=== PATIENT | male | born 1945 | race Caucasian/White ===

== ENCOUNTER 2016-08-05 02:45 | Inpatient (IN) | payer MEDICARE ==
[~2016-08-05] VITALS: Ht 185.4 cm; Wt 86.2 kg
[~2016-08-05 02:45] MED LIST: ASPIRIN EC81 M1 PO; LISINOPRIL-HCTZ1 T11 PO; LISINOPRIL10 MG PO; PRINIVIL20 MG PO
[2016-08-05 03:36] LABS: BASOPHILS 0.3 % (0-2); EOSINOPHILS 1.1 % (0-7); HEMATOCRIT 35.6 % (42.0-54.0); HEMOGLOBIN 11.9 g/dL (13.5-17.5); IMMATURE GRANULOCYTES 0.9 % (0-5); LYMPHOCYTES 13.9 % (15-50); MCH 29.1 pg (26.0-34.0); MCHC 33.4 g/dL (31.0-37.0); MEAN PLATELET VOLUME 8.9 fL (7.4-10.4); MONOCYTES 9.3 % (2-11); NEUTROPHILS 74.5 % (40-80); PLATELET COUNT 250 10x3/uL (130-400); RBC 4.09 10x6/uL (4.20-6.10); RDW 13.3 % (11.5-14.5); WBC 9.3 10x3/uL (4.8-10.8)
[2016-08-05 03:48] LABS: ALBUMIN 3.5 g/dL (3.4-5.0); ANION GAP 11.3 mmol/L (8-16); BILIRUBIN - TOTAL 0.37 mg/dL (0.2-1.3); CREATININE - SERUM 2.3 mg/dL (0.6-1.3); POTASSIUM - SERUM 4.3 mmol/L (3.5-5.1); PROTEIN - SERUM 7.7 g/dL (6.4-8.2)
[2016-08-05 04:07] LABS: APPEARANCE CLEAR (CLEAR); BILIRUBIN NEGATIVE (NEGATIVE); COLOR YELLOW (YELLOW); GLUCOSE NEGATIVE (NEGATIVE); KETONE NEGATIVE (NEGATIVE); LEUKOCYTE ESTERASE TRACE (NEGATIVE); NITRITE NEGATIVE (NEGATIVE); PROTEIN 2+ mg/dL (NEGATIVE); UROBILINOGEN NORMAL (NORMAL)
[2016-08-05 04:19] LABS: BACTERIA FEW /hpf (NONE SEEN); EPITHELIAL CELLS OCC /hpf (0-5); HYALINE CAST OCC /lpf (NONE SEEN); RED CELLS - URINE 0-5 /hpf (0-5); WHITE CELLS - URINE OCC /hpf (0-5)
[2016-08-05 09:45] VITALS: BP 126/80
[2016-08-05 10:16] LABS: INR 1.01 (0.85-1.17); PROTIME 13.2 SECONDS (11.6-15.0)
[2016-08-05 12:59] VITALS: BP 123/82
[2016-08-05 14:29] VITALS: BP 126/80; BMI 25.1
[2016-08-05 17:02] VITALS: BP 134/58
[2016-08-05 19:00] VITALS: BP 117/76
--- NOTE | 2016-08-06 01:42 | NUR ---
REC'D PATIENT ASLEEP IN BED. ALERT AND ORIENTED X4. NO DISTRESS NOTED. DENIED FURTHER NEEDS AT THIS TIME. WAS ABLE TO WAKE HIM UP ENOUGH TO SIGN HIS CONSENT FOR HIS BIOSPY. DENIED PAIN AT THIS TIME. INSTRUCTED TO CALL IF NEEDED ANYTHING. BED LOW, LOCKED, CALL LIGHT IN REACH.
--- NOTE | 2016-08-06 03:05 | NUR ---
PATIENT RESTING WITH EYES CLOSED AND NO VISIBLE SIGNS OF DISTRESS. BED IN LOWEST POSITION AND CALL LIGHT WITHIN REACH.
[2016-08-06 04:00] VITALS: BP 140/89
--- NOTE | 2016-08-06 04:35 | NUR ---
PATIENT IS RESTING IN BED. NO DISTRESS NOTED. DENIES PAIN AT THIS TIME. DENIES FURTHER NEEDS AT THIS TIME. INSTRUCTED TO CALL IF NEEDED ANYTHING. BED LOW, LOCKED, CALL LIGHT IN REACH.
[2016-08-06 07:26] LABS: BASOPHILS 0.5 % (0-2); EOSINOPHILS 2.9 % (0-7); HEMATOCRIT 32.1 % (42.0-54.0); HEMOGLOBIN 10.5 g/dL (13.5-17.5); IMMATURE GRANULOCYTES 0.5 % (0-5); LYMPHOCYTES 16.5 % (15-50); MCHC 32.7 g/dL (31.0-37.0); MCV 88.7 fL (80.0-100.0); MEAN PLATELET VOLUME 8.5 fL (7.4-10.4); MONOCYTES 12.5 % (2-11); NEUTROPHILS 67.1 % (40-80); PLATELET COUNT 212 10x3/uL (130-400); RBC 3.62 10x6/uL (4.20-6.10); RDW 13.5 % (11.5-14.5)
[2016-08-06 07:32] LABS: WBC 6.5 10x3/uL (4.8-10.8)
[2016-08-06 07:52] LABS: APTT 27.8 SECONDS (22.8-39.4); INR 1.03 (0.85-1.17); PROTIME 13.3 SECONDS (11.6-15.0)
[2016-08-06 08:02] LABS: ALBUMIN 2.9 g/dL (3.4-5.0); ANION GAP 8.5 mmol/L (8-16); BILIRUBIN - TOTAL 0.6 mg/dL (0.2-1.3); CALCIUM 8.5 mg/dL (8.5-10.1); CREATININE - SERUM 2.6 mg/dL (0.6-1.3); PROTEIN - SERUM 6.7 g/dL (6.4-8.2)
[2016-08-06 08:04] LABS: POTASSIUM - SERUM 3.5 mmol/L (3.5-5.1)
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
[2016-08-06 08:28] VITALS: BP 149/96
--- NOTE | 2016-08-06 09:58 | NUR ---
RETURNED FROM XRAY. VS R 18 BP 156/103 P 66 OXYGEN SAT 99% ON NON REBREATHER. DRESSING CLEAN DRY AND INTACT. STATES NO COMPLAINTS OF SOB. ASKING FOR COFFEE. CALL LIGHT IN REACH
[2016-08-06 12:42] VITALS: BP 157/98
[2016-08-06 14:42] VITALS: Ht 185.4 cm; Wt 86.2 kg
[2016-08-06 16:38] VITALS: BP 142/87
--- NOTE | 2016-08-06 17:57 | NUR ---
Patient Name: DALE ALLEN Admission Status: ER Accout number: [id number] Admission Date: 08-05-2016 : 1945 Admission Diagnosis: Attending: BECKY Current LOS: 1 Anticipated DC Date: 08-09-2016 Planned Disposition: Home Primary Insurance: MEDICARE A & B Discharge Planning Comments: CM MET WITH PATIENT REGARDING D/C NEEDS AND PLANS. PATIENT STATED HE LIVES WITH HIS SON (MERLENE) AND HE WILL DRIVE HIM HOME AT DISCHARGE. PATIENT STATED HIS HOME IS SAFE AND THERE ARE 3 STEPS W/RAILS TO ENTER HOME AND NO STAIRS INSIDE. PATIENT IS INDEPENDENT WITH HIS CARE AND HAS NO DME AT HOME. PATIENTS PCP IS DR. WARREN IN [place] AND USES [facility] [address] FOR HIS PHARMACY. CM WILL CONTINUE TO FOLLOW PATIENT WITH D/C NEEDS AND PLANS. [facility] [address] [phone] MERLENE (SON) [phone] Polystyrene Bead Molder: Jaylene Murdock Is the patient Alert and Oriented? Yes 0 * How many steps to enter\exit or inside your home? 3 W/RAILS 0 * PCP DR. WARREN IN [place] 0 * [facility] [address] 0 * Preadmission Environment Home with Family 0 * ADLs Independent 0 * Equipment None 0 * List name and contact numbers for known caregivers / representatives who currently or will assist patient after discharge: MERLENE (SON) [phone] 0 * Community resources currently utilized None 0 * Additional services required to return to the preadmission environment? Yes 0 * Can the patient safely return to the preadmission environment? Yes 0 * Has this patient been hospitalized within the prior 30 days at any hospital? No 0 Grand Total: 0
[2016-08-07] VITALS: BP 160/103
--- NOTE | 2016-08-07 01:10 | NUR ---
REC'D PATIENT SITTING UP IN BED WATCHING TV. ALERT AND ORIENTED X4. DENIED PAIN AT THIS TIME. STATED HIS PAIN MEDS WERE MAKING HIM SICK. AND HIS BP WAS 160/103. HE STATED THAT "I TAKE 2 BP MEDS AT HOME". I CALLED THE DISPUTE RESOLUTION SPECIALIST DOC FOR DR. TAI. DR. FREEMAN AND HE TOLD ME TO CHANGED HIS BP MEDS TO BID, AND HIS PAIN MEDS TO OXYCOTIN 5MG Q6. ADMINISTERED ORDERED. BP WAS RECHECKED AND WAS 150/87. DENIED FURTHER NEEDS AT THIS TIME. INSTRUCTED TO CALL IF NEEDED ANYTHING. VERBALIZED UNDERSTANDING. BED LOW, LOCKED CALL LIGHT IN REACH, ALARM ON.
[2016-08-07 04:00] VITALS: BP 143/76
[2016-08-07 06:15] LABS: BASOPHILS 0.3 % (0-2); EOSINOPHILS 3.1 % (0-7); HEMATOCRIT 32.2 % (42.0-54.0); HEMOGLOBIN 10.7 g/dL (13.5-17.5); IMMATURE GRANULOCYTES 0.5 % (0-5); LYMPHOCYTES 18.6 % (15-50); MCH 29.2 pg (26.0-34.0); MCHC 33.2 g/dL (31.0-37.0); MCV 87.7 fL (80.0-100.0); MEAN PLATELET VOLUME 8.7 fL (7.4-10.4); MONOCYTES 11.5 % (2-11); PLATELET COUNT 238 10x3/uL (130-400); RBC 3.67 10x6/uL (4.20-6.10); RDW 13.4 % (11.5-14.5); WBC 6.2 10x3/uL (4.8-10.8)
[2016-08-07 06:33] LABS: ALBUMIN 2.8 g/dL (3.4-5.0); ANION GAP 12.6 mmol/L (8-16); BILIRUBIN - TOTAL 0.45 mg/dL (0.2-1.3); CALCIUM 8.5 mg/dL (8.5-10.1); CARBON DIOXIDE 27.4 mmol/L (21.0-32.0); CREATININE - SERUM 2.1 mg/dL (0.6-1.3); PROTEIN - SERUM 6.7 g/dL (6.4-8.2)
--- NOTE | 2016-08-07 07:45 | NUR ---
ASSESSMENT PER FLOW SHEET.PT WITHOUT DISTRESS.DRESSING RIGHT UPPER BACK CDI.C/O PAIN TO LEFT HIP,BRUISING NOTED.MONITOR FOR NEEDS.FALL PREVENTION IN PLACE.
[2016-08-07 08:26] VITALS: BP 160/94
--- NOTE | 2016-08-07 10:00 | NUR ---
PAIN MEDS ORDERED PER MAR FOR PAIN IN LEFT HIP
[2016-08-07] MEDS ORDERED: PERCOCET 5-3251 TAB PO (11:24)
[2016-08-07 12:15] VITALS: BP 172/107
--- NOTE | 2016-08-07 12:31 | NUR ---
CM REASSESSMENT NOTE: PATIENT IS DISCHARGING HOME TODAY. PATIENTS SON OR FRIEND (JUAN PABLO) WILL DRIVE HIM HOME. PATIENT DENIES NEEDS FOR HOME HEALTH AND HAD NO OTHER NEEDS FOR DISCHARGE.
--- NOTE | 2016-08-07 12:57 | NUR ---
REMAINS WITHOUT NEEDS,WITHOUT DISTRESS.
--- NOTE | 2016-08-07 14:07 | NUR ---
IV DCD WITH CATH INTACT.PT WISHAES TO SHOWER BEFORE DC HOME.PT UP TO SHOWER
--- NOTE | 2016-08-07 15:38 | NUR ---
LEFT UNIT VIA WHEELCHAIR
== END 2016-08-07 15:39 | disposition home or self-care (01) | DRG 552 ==
LOC: D.ER 02:45 → D.MS 06:35
PROVIDERS: Emergency Medicine; General Practice; Internal Medicine Hematology & Oncology; Radiology Diagnostic Radiology; ADMIT Family Medicine
PROC: 0BBC3ZX Excision of Right Upper Lung Lobe, Percutaneous Approach, Diagnostic (ICD-10-PCS; principal; 2016-08-06 08:25)
DX: S32.039A Unspecified fracture of third lumbar vertebra, initial encounter for closed fracture (principal); J95.811 Postprocedural pneumothorax; S32.049A Unspecified fracture of fourth lumbar vertebra, initial encounter for closed fracture; V47.0XXA Car driver injured in collision with fixed or stationary object in nontraffic accident, initial encounter; I10 Essential (primary) hypertension; R91.8 Other nonspecific abnormal finding of lung field; M62.830 Muscle spasm of back; Y83.9 Surgical procedure, unspecified as the cause of abnormal reaction of the patient, or of later complication, without mention of misadventure at the time of the procedure

== ENCOUNTER 2016-08-17 22:44 | Inpatient (IN) | payer MEDICARE ==
[~2016-08-17] VITALS: Ht 185.4 cm; Wt 76.2 kg
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
[~2016-08-17 22:44] MED LIST changes: +PERCOCET 5-3251 TAB PO
[2016-08-17 23:57] LABS: HEMOGLOBIN 10.2 g/dL (13.5-17.5); MCH 29.1 pg (26.0-34.0); MCV 85.5 fL (80.0-100.0); MEAN PLATELET VOLUME 7.9 fL (7.4-10.4); NEUTROPHILS 72.4 % (40-80); RBC 3.51 10x6/uL (4.20-6.10); RDW 13.6 % (11.5-14.5); WBC 7.7 10x3/uL (4.8-10.8)
[2016-08-18] VITALS (17 sets, daily range): BP systolic 126–185; BP diastolic 66–107; BMI 22.2
[2016-08-18 00:04] LABS: PLATELET COUNT 333 10x3/uL (130-400)
[2016-08-18 00:07] LABS: ANION GAP 15.4 mmol/L (8-16); CALCIUM 8.7 mg/dL (8.5-10.1); CARBON DIOXIDE 21.1 mmol/L (21.0-32.0); CREATININE - SERUM 2.4 mg/dL (0.6-1.3); POTASSIUM - SERUM 3.5 mmol/L (3.5-5.1)
--- NOTE | 2016-08-18 07:00 | NUR ---
PT REC'D FROM [facility]. RESTING IN BED WITH EYES CLOSED. EASILY AROUSED. AAOX4. ABRASIONS AND DRIED BLOOD TO FOREHEAD. ASPEN COLLAR ON. LUNG SOUNDS CLEAR AND EQUAL BILAT. BOWEL SOUNDS ACTIVE X4 QUADRANTS. PT HAS SMALL BLACK BAG AROUND HIS NECK THAT HE STATES HE DOES NOT WANT TO SEND TO THE SAFE. RATING CURRENT PAIN IN NECK 09/23. BP ELEVATED AT 168/99. WILL REASSESS. BED LOW, CALL LIGHT IN REACH, DENIES NEEDS. CPOC.
[2016-08-18 09:47] LABS: APTT 26.6 SECONDS (22.8-39.4); INR 1.08 (0.85-1.17); PROTIME 13.9 SECONDS (11.6-15.0)
--- NOTE | 2016-08-18 11:00 | NUR ---
OFF FLOOR IN MRI VIA STRETCHER.
--- NOTE | 2016-08-18 11:28 | NUR ---
PT SIGNED CONSENTS, PRE-OP'D, AND TAKEN TO SURGERY AT THIS TIME. SMALL BLACK BAG AROUND NECK AND REMOVED. WILL CALL SECURITY LOCK UP IN SAFE.
--- NOTE | 2016-08-18 13:12 | NUR ---
PATIENT POSITIONED PRONE ON GEL ROLLS, SKULL PINS PLACED BY DR. INGRAM, RIB LAKE HEAD POSITIONER, PILLOWS UNDER KNEES AND FEET, ARMS TUCKED AT SIDE AND PADDED
--- NOTE | 2016-08-18 14:46 | NUR ---
PT ARRIVED TO UNIT AT THIS TIME FROM OR, RECIEVED REPORT FROM TOD. NO DISTRESS NOTED. AXILLARY TEMP OF 92.7 NOTED ,KEITH SORENSEN PPLACED AT THIS TIME. PT ARRIVED VIA BED ACCOMPANIED BY HOSPITAL STAFF. WILL CONTINUE PLAN OF CARE.
--- NOTE | 2016-08-18 15:23 | NUR ---
NOTED PT BP IS 187/98, CALLED DR HUTSON OFFICE TO SEE IF CAN GET FURTHER ORDERS IN RELATION TO THIS HTN. WILL CONTINUE PLAN OF CARE.
--- NOTE | 2016-08-18 15:31 | NUR ---
SPOKE WITH DR INGRAM AT THIS TIME ORDERS RECIEVED.
--- NOTE | 2016-08-18 15:54 | NUR ---
DR WRIGHT PAGED AT THIS TIME FOR CONSULT. WAITING FOR CALLBACK.
--- NOTE | 2016-08-18 17:37 | NUR ---
ABLE TO SWALLOW ICE CHIPS AND WATER WELL WITHOUT S/S OF ASPIRATION. NO ACUTE DISTRESS NOTED. WILL CONTINUE PLAN OF CARE.
--- NOTE | 2016-08-18 18:49 | NUR ---
RESTING QUIETLY IN BED AT THIS TIME. NO ACUTE DISTRESS NOTED. RESPIRATIONS AT STEADY AND UNLABORED RATE. AWAKENS EASILY WHEN STAFF STATES PT NAME. WILL CONTINUE PLAN OF CARE.
--- NOTE | 2016-08-18 19:00 | NUR ---
Received patient resting in bed with eyes closed, Assessment completed per flowsheet. Patient AO x4, calm and cooperative. Eyes PERRLA @ 4mm with brisk response, sclera is white. Oral mucosa is dry with tongue midline. S1/S2 noted NSR on telemetry with HR 74, rythmic and regular. Breathing is even and unlabored on room air, Lung sounds clear throughout. Abdomen is soft and non-tender to palpation, bowel sounds active x4. Thornton secured in place with statlock, clear yellow urine noted. Full ROM all extremities with all pulses palpable and Cap refill <3 sec. Multiple abrasions noted facial area and forehead, surgical stabilzation wounds noted above ears bilateral with no drainage. 20g PIV noted R forearm patent with fluids infusing, 20g PIV noted R lower leg saline locked. Patient c/o pain head and neck, PRN medication given and will reassess. Patient denies other needs at this time, all VSS and will continue to monitor.
--- NOTE | 2016-08-18 23:00 | NUR ---
Reassessment completed per flowsheet, patient in bed with eyes open groaning. Patient c/o intermittent neck pain 09/23, repositioned and will provide PRN medication when available. S1/S2 noted NSR on telemetry with HR 90, rhythmic and regular. Breathing is even and unlabored on room air, O2 sat 94%. Posterior neck dressing CDI, no swelling or drainage noted. No further needs at this time, all VSS and will continue to monitor.
[2016-08-19] VITALS (16 sets, daily range): BP systolic 127–171; BP diastolic 71–102; Ht 185.4 cm; Wt 76.2 kg
--- NOTE | 2016-08-19 03:00 | NUR ---
Reassessment completed per flowsheet, patient resting in bed with eyes closed. Patient c/o constant pain in Neck 09/23, repositioned and will provided PRN medication when available. S1/S2 noted NSR on telemetry with HR 87, rhythmic and regular. Breathing is even and unlabored on room air, O2 sat 95%. Posterior neck dressing CDI, no bleeding or drainage noted. No further needs at this time, all VSS and will continue to monitor.
--- NOTE | 2016-08-19 07:15 | NUR ---
ASSESSMENT COMPLETE. AAO X4. GARBLED SPEECH, MISSING TEETH. CLEAR LUNGS. ROOM AIR. S1S2 NOTED, RADIAL AND PEDAL PULSES PALP. GENERALIZED WEAKNESS. REPORTS TROUBLE SWALLOWING. PAIN IN NECK. ACTIVE BOWEL SOUNDS X4. SEE FLOWSHEET FOR OTHER FINDINGS.
--- NOTE | 2016-08-19 09:30 | NUR ---
PT REPORTS TROUBLE SWALLOWING PILLS. WILL NOTIFY PHYSICIAN FOR SPEECH THERAPY CONSULT.
--- NOTE | 2016-08-19 11:15 | NUR ---
REASSESSMEMT COMPLETE, SEE FLOWSHEET FOR DETAILS.
[2016-08-19 11:48] LABS: MAGNESIUM - SERUM 1.9 mg/dL (1.8-2.4); PHOSPHOROUS 3.4 mg/dL (2.5-4.9)
[2016-08-19 11:50] LABS: COMPLEMENT C4 13.1 mg/dL (17.4-52.2)
--- NOTE | 2016-08-19 11:53 | NUR ---
SPOKE WITH DR. AHUJA ABOUT CONSULT
[2016-08-19 12:54] LABS: APPEARANCE CLEAR (CLEAR); BACTERIA MODERATE /hpf (NONE SEEN); BILIRUBIN NEGATIVE (NEGATIVE); COLOR YELLOW (YELLOW); EPITHELIAL CELLS 0-5 /hpf (0-5); GLUCOSE 50 mg/dL (NEGATIVE); KETONE NEGATIVE (NEGATIVE); LEUKOCYTE ESTERASE 1+ (NEGATIVE); MUCUS <1+ /lpf (NONE SEEN); NITRITE NEGATIVE (NEGATIVE); PROTEIN 1+ mg/dL (NEGATIVE); SPECIFIC GRAVITY 1.015 (1.005-1.020); UROBILINOGEN NORMAL (NORMAL)
--- NOTE | 2016-08-19 12:59 | NUR ---
NOTIFIED JUDI THAT THE FAMILY FRIEND PRESENT WANTS TO SPEAK WITH HER
--- NOTE | 2016-08-19 13:35 | NUR ---
JUDI AT BEDSIDE SPEAKING WITH PATIENT'S FRIEND/NURSE ROOFING SUPERVISOR ABOUT REHAB
--- NOTE | 2016-08-19 15:31 | NUR ---
DR. AHUJA AT BEDSIDE.
--- NOTE | 2016-08-19 17:00 | NUR ---
PT DENIES NEEDS AT THIS TIME.
--- NOTE | 2016-08-19 17:35 | NUR ---
[id number] had a telephone message from Akilah Sánchze, friend of patient and his son. She assist the patient with some decision making, financial issues and offers health care advise. She states the patient has a home which is trailer. She states he could not return to the trailer at discharge. He has had 2 recent admits including this one. He has been utilizing a bike for transportation. He has a son, Thu Martel, at [phone]. called Thu. He is concerned about his father but states he has his own issues. He and his father do not manage well living together. The son reports his father does not want to assist w/ bills. He also seems to be independent and likes being alone. MS Sánchez visited at 1300 in the patient's room. The nurse called to to speak with her. The patient has a trailer but limited utilities if any. She feels he would do well in acute rehab. The patient was in agreement with the plan. He is willing to participate. They request acute rehab at [facility]. MS Sánchez is familiar with the unit. She is a nursing unit manager. She feels he will need assistance w/ resources for f/u, transportation etc. The patient was OOB in the chair. He was having some pain and had been medicated. Case management will follow to assist. Akilah Mckeonming- contact phone number- [phone].
--- NOTE | 2016-08-19 19:00 | NUR ---
Received patient resting in bed with eyes closed, assessment completed per flowsheet. Patient AO x4, calm and cooperative. Eyes PERRLA @ 4mm with brisk response, sclera is white. Oral mucosa moist with tongue midline, some teeth missing. S1/S2 noted NSR on telemetry with HR 79, rhythmic and regular. Breathing is even and unlabored on room air with O2 sat 95%, lung sounds clear throughout. Abdomen is flat and soft, bowel sounds active x4. Thornton secured in place, cloudy yellow urine noted in collection. Full ROM all extremities with slight weakness noted. All pulses palpable with cap refill <3 sec. 20g PIV noted R forearm/R lower leg, patent with dressing CDI. Posterior neck dressing CDI with no bleeding or drainage noted, abrasions noted to head and extremites. Patient c/o breakthrough pain 3/10 neck, will provide PRN medication when available. No further needs at this time, all VSS and will continue to monitor.
[2016-08-20 03:00] VITALS: BP 157/85
--- NOTE | 2016-08-20 10:01 | NUR ---
RECEIVED TO ROOM 2229 VIA BED FROM ICU. A/O X3. C COLLAR IN PLACE. DRESSING TO BACK OF NECK DRY AND INTACT. DENIES NEEDS. REPORTS PAIN UNRELIEVED AT THIS TIME. SKIN IS INTACT OTHERWISE EXCEPT ABRASIONS TO HEAD WHICH HAVE SCABBED OVER.
[2016-08-20 10:17] LABS: ANA REFLEX - DBL STRANDED DNA <1 IU/mL (0-9); ANA REFLEX - DIRECT Negative (Negative)
[2016-08-20 12:13] LABS: BASOPHILS 0.2 % (0-2); EOSINOPHILS 0.6 % (0-7); HEMATOCRIT 32.4 % (42.0-54.0); HEMOGLOBIN 10.6 g/dL (13.5-17.5); IMMATURE GRANULOCYTES 0.3 % (0-5); LYMPHOCYTES 9.5 % (15-50); MCH 29.4 pg (26.0-34.0); MCHC 32.7 g/dL (31.0-37.0); MCV 89.8 fL (80.0-100.0); MEAN PLATELET VOLUME 8.5 fL (7.4-10.4); MONOCYTES 8.9 % (2-11); NEUTROPHILS 80.5 % (40-80); PLATELET COUNT 285 10x3/uL (130-400); RBC 3.61 10x6/uL (4.20-6.10); RDW 14.6 % (11.5-14.5); WBC 10.4 10x3/uL (4.8-10.8)
[2016-08-20 12:21] LABS: ANION GAP 11.5 mmol/L (8-16); CALCIUM 8.4 mg/dL (8.5-10.1); CARBON DIOXIDE 24.1 mmol/L (21.0-32.0); CREATININE - SERUM 1.8 mg/dL (0.6-1.3); POTASSIUM - SERUM 3.6 mmol/L (3.5-5.1)
[2016-08-20 12:54] VITALS: BP 127/87
[2016-08-20] MEDS ORDERED: NORVASC10 MG PO (13:15)
[2016-08-20] MEDS ORDERED: VALIUM5 MG PO (13:16)
[2016-08-20] MEDS ORDERED: ACETAMINOPHEN325 MG PO (13:16)
[2016-08-20] MEDS ORDERED: ZOFRAN4 MG PO (13:17)
[2016-08-20] MEDS ORDERED: HYDROCODON-ACE1 EAC7 PO (13:17)
--- NOTE | 2016-08-20 13:41 | NUR ---
Rehab Note- Acute Rehab Prescreen order received. Met with the patient and he is interested in IRF. Plan to admit to [facility] IRF when ready to discharge from the acute hospital. Will follow the patient at this time. Thank you for this referral! Claudette Martínez RN Clinical Liaison, [facility] Rehab/Su
--- NOTE | 2016-08-20 14:08 | NUR ---
GOOD D/C WITH TIP INTACT WITHOUT DIFFICULTY. NO C/O PAIN OR DISCOMFORT. URINAL LEFT AT BEDSIDE.
--- NOTE | 2016-08-20 14:12 | NUR ---
CM REASSESSMENT NOTE: PATIENT IS DISCHARGING TO IP REHAB TODAY
--- NOTE | 2016-08-20 18:16 | NUR ---
REPORT CALLED TO FRANCK REYES RN ON REHAB. ALL QUESTIONS ANSWERED. WILL TRANSFER VIA WC TO ROOM 1116.
--- NOTE | 2016-08-20 18:30 | NUR ---
TRANSFERRED TO REHAB VIA . ROOM 1116.
--- NOTE | 2016-08-21 11:09 | NUR ---
PATIENT ADMITTED TO REHAB FROM ACUTE FLOOR. PLANS ARE FOR PATIENT TO RETURN HOME. WILL VISIT WITH PATIENT AND WILL ASSIST WITH DISCHARGE PLANS.
== END 2016-08-20 18:30 | DRG 472 ==
LOC: D.ER 22:44 → D.MS 08-18 01:47 → D.CVICU 08-18 01:47 → D.MS 08-20 09:47
PROVIDERS: Emergency Medicine; Internal Medicine; ADMIT Neurological Surgery
PROC: 0RG20A1 (ICD-10-PCS; 2016-08-18)
PROC: 0PH304Z Insertion of Internal Fixation Device into Cervical Vertebra, Open Approach (ICD-10-PCS; 2016-08-18)
PROC: 0PH304Z Insertion of Internal Fixation Device into Cervical Vertebra, Open Approach (ICD-10-PCS; principal; 2016-08-18 10:56)
DX: S12.120A Other displaced dens fracture, initial encounter for closed fracture (principal); N17.9 Acute kidney failure, unspecified; C34.90 Malignant neoplasm of unspecified part of unspecified bronchus or lung; V89.2XXA Person injured in unspecified motor-vehicle accident, traffic, initial encounter; I10 Essential (primary) hypertension

== ENCOUNTER 2016-08-20 18:37 | Inpatient (IN) | payer MEDICARE ==
[~2016-08-20] VITALS: Ht 182.9 cm; Wt 76.2 kg
[~2016-08-20 18:37] MED LIST changes: +ACETAMINOPHEN325 MG PO; +HYDROCODON-ACE1 EAC7 PO; +NORVASC10 MG PO; +VALIUM5 MG PO; +ZOFRAN4 MG PO
--- NOTE | 2016-08-20 19:43 | NUR ---
PT RECEIVED IN BED WITH EYES CLOSED AND CHEST RISING. EASILY AROUSED TO VERBAL STIMULI. NO CONCERNS MADE KNOWN. CALL LIGHT IN REACH.
--- NOTE | 2016-08-20 22:26 | NUR ---
PT IN BED WITH EYES CLOSED AND CHEST RISING. NO CONCERNS NOTED AT THIS TIME. CALL LIGHT IN REACH.
[2016-08-20 23:13] VITALS: BP 140/77
--- NOTE | 2016-08-21 02:56 | NUR ---
PT IN BED WITH EYES CLOSED AND CHEST RISING. NO CONCERNS NOTED AT THIS TIME. CALL LIGHT IN REACH.
[2016-08-21 06:39] LABS: BASOPHILS 0.3 % (0-2); EOSINOPHILS 1.5 % (0-7); HEMATOCRIT 31.3 % (42.0-54.0); HEMOGLOBIN 10.1 g/dL (13.5-17.5); IMMATURE GRANULOCYTES 0.1 % (0-5); LYMPHOCYTES 15.7 % (15-50); MCH 29.1 pg (26.0-34.0); MCHC 32.3 g/dL (31.0-37.0); MCV 90.2 fL (80.0-100.0); MEAN PLATELET VOLUME 8.5 fL (7.4-10.4); MONOCYTES 11.8 % (2-11); NEUTROPHILS 70.6 % (40-80); PLATELET COUNT 301 10x3/uL (130-400); RBC 3.47 10x6/uL (4.20-6.10); RDW 14.7 % (11.5-14.5); WBC 7.9 10x3/uL (4.8-10.8)
[2016-08-21 06:50] LABS: ANION GAP 11.5 mmol/L (8-16); CALCIUM 8.7 mg/dL (8.5-10.1); CARBON DIOXIDE 24.4 mmol/L (21.0-32.0); CREATININE - SERUM 1.8 mg/dL (0.6-1.3); POTASSIUM - SERUM 3.9 mmol/L (3.5-5.1)
[2016-08-21 08:00] VITALS: BP 151/97
--- NOTE | 2016-08-21 08:00 | NUR ---
BREAKFAST GIVEN.SOFT COLLAR INTACT.INCISION INTACT.UMM INTACT.
--- NOTE | 2016-08-21 11:18 | NUR ---
PATIENT ADMITTED TO REHAB FROM ACUTE FLOOR. PLANS ARE FOR PATIENT TO RETURN HOME. PATIENT REPORTS NO FAMILY SUPPORT. WILL CONTINUE TO FOLLOW WITH PATIENT AND WILL ASSIST WITH DISCHRGE NEEDS.
--- NOTE | 2016-08-21 12:00 | NUR ---
SITTING UP IN BED WITH COLLAR EATING LUNCH.
[2016-08-21 14:30] VITALS: Ht 182.9 cm; Wt 76.2 kg
--- NOTE | 2016-08-21 16:00 | NUR ---
RESTING EASY.DENIES NEEDS.
--- NOTE | 2016-08-21 19:50 | NUR ---
PT. IN BED WITH HOB UP FOR COMFORT, IS WATCHING TV AND HAS A FEMALE VISITOR. ASSESSMENT COMPLETED. NO VOICED NEEDS AT THIS TIME AND HIS CALL LIGHT IS WITHIN REACH. PT. DECIDED HE WANTED TO SIGN BED/CHAIR ALARM WAIVER. EXPLAINED WAIVER FORM TO PT. AND HE SIGNED IT. FORM TO BE PLACED IN PT'S CHART.
[2016-08-21 21:46] VITALS: BP 159/82
--- NOTE | 2016-08-21 23:13 | NUR ---
PT. IN BED WITH HOB UP FOR COMFORT WEARING HIS SOFT COLLAR AND WATCHING TV. NO VOICED NEEDS AT THIS TIME AND PAIN LEVEL DOWN TO #5. CALL LIGHT WITHIN REACH.
--- NOTE | 2016-08-22 03:12 | NUR ---
PT. IN BED LYING ON HIS LEFT WITH WITH HOB ELEVATED FOR COMFORT. SOFT COLLAR REMAINS ON. EYES CLOSED AND RESP. EVEN AND CALL LIGHT WITHIN REACH.
[2016-08-22 08:00] VITALS: BP 158/90
--- NOTE | 2016-08-22 08:00 | NUR ---
SHIFT ASSMT COMPLETED.DENIES NEEDS.MEAL GIVEN.SOFT C COLLAR ON.
--- NOTE | 2016-08-22 12:00 | NUR ---
EATING LUNCH.DENIES NEEDS.
--- NOTE | 2016-08-22 16:00 | NUR ---
resting quietly in bed
--- NOTE | 2016-08-22 16:29 | NUR ---
recieved call from Akilah Sánchez, which is patients friend. She states that patient is homeless and is living on a vacant [address] on [address]. She said that she knew he had lung cancer and she wants to help him anyway she can. She states that he and his son does not get along . will continue to follow with patient and will help in anyway.
[2016-08-22 19:30] VITALS: BP 155/89
--- NOTE | 2016-08-22 20:00 | NUR ---
PT IN BED WITH HOB UP FOR COMFORT. RESTING QUIETLY. TV ON. SOFT COLLAR ON. NO IV. NO O2. BED AND CHAIR WAIVER. BED IN LOWEST POSITION AND CALL LIGHT WITHIN REACH.
--- NOTE | 2016-08-22 23:15 | NUR ---
IN BED, EYES CLOSED. NO DISTRESS NOTED.
--- NOTE | 2016-08-23 | NUR ---
PT IN BED WITH HOB UP FOR COMFORT. EYES CLOSED. CHEST RISING AND FALLING. BED IN LOWEST POSITION AND CALL LIGHT WITHIN REACH.
--- NOTE | 2016-08-23 04:00 | NUR ---
PT IN BED WITH HOB UP FOR COMFORT. EYES CLOSED. RESPIRATIONS EVEN AND UNLABORED. BED IN LOWEST POSITION AND CALL LIGHT WIHTIN REACH.
[2016-08-23 06:41] LABS: EOSINOPHILS 5.4 % (0-7); HEMATOCRIT 31.5 % (42.0-54.0); HEMOGLOBIN 10.1 g/dL (13.5-17.5); IMMATURE GRANULOCYTES 0.4 % (0-5); LYMPHOCYTES 19.5 % (15-50); MCH 28.7 pg (26.0-34.0); MCHC 32.1 g/dL (31.0-37.0); MCV 89.5 fL (80.0-100.0); MEAN PLATELET VOLUME 8.8 fL (7.4-10.4); MONOCYTES 13.5 % (2-11); NEUTROPHILS 60.2 % (40-80); PLATELET COUNT 337 10x3/uL (130-400); RBC 3.52 10x6/uL (4.20-6.10)
[2016-08-23 07:54] LABS: ANION GAP 12.1 mmol/L (8-16); CALCIUM 8.8 mg/dL (8.5-10.1); CARBON DIOXIDE 26.7 mmol/L (21.0-32.0); CREATININE - SERUM 1.9 mg/dL (0.6-1.3); POTASSIUM - SERUM 3.8 mmol/L (3.5-5.1)
--- NOTE | 2016-08-23 08:00 | NUR ---
SHIFT ASSMT COMPLETED,SOFT C-COLLAR ON.
[2016-08-23 08:37] VITALS: BP 165/90
--- NOTE | 2016-08-23 12:00 | NUR ---
EATING LUNCH.CL IN REACH.
--- NOTE | 2016-08-23 16:00 | NUR ---
RESTING QUIETLY.CL IN REACH.
--- NOTE | 2016-08-23 19:45 | NUR ---
PT RECIEVED IN BED WITH EYES CLOSED AND CHEST RISING. EASILY AROUSED TO VERBAL STIMULI. NO CONCERNS NOTED. CALL LIGHT IN REACH.
--- NOTE | 2016-08-23 22:54 | NUR ---
PT IN BED WATCHING TV. HS MEDICATIONS RECEIVED WITHOUT DIFFICULTY. SHOWER GIVEN WITH MIN ASSIST. CLEAN CLOTHING AND BEDDING PROVIDED. NO NEEDS NOTED AT THIS TIME. CALL LIGHT IN REACH.
[2016-08-23 23:14] VITALS: BP 166/90
--- NOTE | 2016-08-24 03:06 | NUR ---
PT IN BED WITH EYES CLOSED AND CHEST RISING. NO SIGN/SYMPTOMS OF DISTRESS NOTED. CALL LIGHT IN REACH.
--- NOTE | 2016-08-24 05:58 | NUR ---
PT IN BED WITH EYES CLOSED AND CHEST RISING. NO CONCERNS NOTED. CALL LIGHT IN REACH.
[2016-08-24 08:00] VITALS: BP 160/100
--- NOTE | 2016-08-24 08:08 | NUR ---
PATIENT IS ALERT/ORIENT X4. CALL LIGHT WITHIN REACH. RESTING WELL. VOICES NO NEEDS
--- NOTE | 2016-08-24 09:45 | NUR ---
PHYSICAL THERAPIST WENT INTO PATIENTS ROOM TO WORK WITH PATIENT. PATIENT STATED NAUSEA. WENT INTO BATHROOM AND VOMITTED ABOUT 200CC/FLUID. PATIENT DID NOT EAT BREAKFAST. PRN ZOFRAN GIVEN
--- NOTE | 2016-08-24 11:20 | NUR ---
PATIENT IN REHAB ROOM. WORKING WITH PHYSICAL THERAPIST. DENIES ANY PAIN/DISC AT THIS TIME
--- NOTE | 2016-08-24 11:20 | NUR ---
PATIENT IN REHAB ROOM. WORKING WITH PHYSICAL THERPAIST. DENIES ANY NAUSEA AT THIS TIME
--- NOTE | 2016-08-24 12:42 | NUR ---
PT RESTING, EYES CLOSED. RR EVEN AND UNLABORED. WCTM.
--- NOTE | 2016-08-24 13:03 | NUR ---
PRN PAIN MEDICATION GIVEN FOR NECK PAIN
--- NOTE | 2016-08-24 18:45 | NUR ---
PRN DUCOLAX SUPP. GIVEN FOR CONSTIPATION. NO BOWEL MOVEMENT SINCE. 08/17/16
--- NOTE | 2016-08-24 21:00 | NUR ---
PT RECEIVED IN BED WITH EYES CLOSED AND CHEST RISING. EASILY AROUSED TO VERBAL STIMULI. NO CONCERNS NOTED. CALL LIGHT IN REACH.
[2016-08-24 22:14] VITALS: BP 135/80
--- NOTE | 2016-08-24 23:28 | NUR ---
PT IN BED WITH EYES OPEN WATCHING TV. NO CONCERNS MADE KNOWN. CALL LIGHT IN REACH.
--- NOTE | 2016-08-25 03:40 | NUR ---
PT IN BED WITH EYES CLOSED AND CHEST RISING. NO CONCERNS NOTED AT THIS TIME. CALL LIGHT IN REACH.
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
--- NOTE | 2016-08-25 06:14 | NUR ---
PT IN BED WITH EYES CLOSED AND CHEST RISING. EASILY AROUSED TO VERBAL STIMULI. NO CONCERNS NOTED AT THIS TIME. CALL LIGHT IN REACH.
--- NOTE | 2016-08-25 07:44 | NUR ---
PATIENT ALERT/ORIENT X4. CALL LIGHT WITHIN REACH. RESTING WELL. EYES SHUT WHEN BREAKFAST TRAY BROUGHT INTO ROOM.
[2016-08-25 08:00] VITALS: BP 142/81
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
--- NOTE | 2016-08-25 11:41 | NUR ---
PATIENT RESTING WELL. NO DISTRESS NOTED. DENIES ANY PAIN/DISC AT THIS TIME. PHONED AND STATED THAT SHE WILL BE BRING FAMILY DOG IN LATER THIS AFTERNOON. TOLD SHE WOULD BE ABLE TO TAKE PATIENT OUTSIDE TO VISIT
--- NOTE | 2016-08-25 14:22 | NUR ---
PATIENT: TRAUMATIC SPINAL CORD DYS C1-C3. INCISION TO BACK OF THE NECK. SURGICAL CLIPS. SOFT COLLOR ON AT ALL TIMES EXCEPT FOR WHEN HE IS IN THE SHOWER. PATIENT HAS SIGNED A BED/CHAIR ALARM WAVIOR. WALKING IN ROOM BY SELF. GAIT STEADY
--- NOTE | 2016-08-25 18:10 | NUR ---
PATIENTS HERE. TOOK PATIENT OUTSIDE TO VISIT WITH FAMILY DOG
--- NOTE | 2016-08-25 19:44 | NUR ---
PT RECEIVED IN BED WITH EYES OPEN WATCHING TV. COMPLAINS OF PAIN TO NECK AND SHOULDERS WITH PRN PAIN MEDICATION GIVEN PER MAY. NO OTHER NEEDS MADE KNOWN. CALL LIGHT IN REACH.
[2016-08-25 22:50] VITALS: BP 154/79
--- NOTE | 2016-08-26 00:18 | NUR ---
PT IN BED WITH EYES CLOSED AND CHEST RISING. NO CONCERNS MADE KNOWN. CALL LIGHT IN REACH.
--- NOTE | 2016-08-26 03:04 | NUR ---
PT IN BED WITH EYES CLOSED AND CHEST RISING. NO CONCERNS NOTED AT THIS TIME. CALL LIGHT IN REACH.
[2016-08-26 06:49] LABS: BASOPHILS 0.7 % (0-2); HEMATOCRIT 35.2 % (42.0-54.0); HEMOGLOBIN 11.4 g/dL (13.5-17.5); IMMATURE GRANULOCYTES 1.6 % (0-5); MCH 28.6 pg (26.0-34.0); MCHC 32.4 g/dL (31.0-37.0); MCV 88.4 fL (80.0-100.0); MEAN PLATELET VOLUME 8.6 fL (7.4-10.4); MONOCYTES 12.4 % (2-11); NEUTROPHILS 61.3 % (40-80); PLATELET COUNT 377 10x3/uL (130-400); RBC 3.98 10x6/uL (4.20-6.10); RDW 13.6 % (11.5-14.5)
[2016-08-26 06:58] LABS: ANION GAP 12.7 mmol/L (8-16); CALCIUM 9.1 mg/dL (8.5-10.1); CARBON DIOXIDE 26.5 mmol/L (21.0-32.0); CREATININE - SERUM 1.9 mg/dL (0.6-1.3); POTASSIUM - SERUM 4.2 mmol/L (3.5-5.1)
--- NOTE | 2016-08-26 07:52 | NUR ---
SITTING UP ON SIDE OF BED EATING BREAKFAST.
[2016-08-26 10:32] VITALS: BP 131/80
--- NOTE | 2016-08-26 11:45 | NUR ---
RECIEVED CALL FROM JUAN PABLO L[facility] AND SHE AND MR. ALLEN WOULD LIKE REFERAL TO BE SENT TO [facility] WHEN DISCHARGED FROM REHAB.
--- NOTE | 2016-08-26 13:46 | NUR ---
DENIES INCREASED PAIN. STILL WEARING SOFT C-COLLAR AT ALL TIMES.
--- NOTE | 2016-08-26 15:31 | NUR ---
NUTRITION MONITORING & EVAL CHART REVIEWED, PT VISIT. NO INTAKE RECENT MEALS. STATES ONLY ONE BM "SINCE I'VE BEEN HERE". STATES THE MEDICINE FOR CONSTIPATION IS CAUSING NAUSEA. SPOKE WITH NURSING ~ SAME. RD FOLLOWING
[2016-08-26 19:30] VITALS: BP 133/82
--- NOTE | 2016-08-26 20:00 | NUR ---
PT IN BED WITH HOB UP COMFORT. WATCHING TV. ALERT & ORIENTED. BED IN LOWEST POSITION AND CALL LIGHT WITHIN REACH.
--- NOTE | 2016-08-27 | NUR ---
PT IN BED WITH HOB UP FOR COMFORT. EYES CLOSED. CHEST RISING AND FALLING. BED IN LOWEST POSITION AND CALL LIGHT WITHIN REACH.
--- NOTE | 2016-08-27 04:00 | NUR ---
PT IN BED WITH HOB UP FOR COMFORT. EYES CLOSED. RESPIRATIONS EVEN AND UNLABORED. BED IN LOWEST POSITION AND CALL LIGHT WITHIN REACH.
--- NOTE | 2016-08-27 05:14 | NUR ---
PT RESTING QUIETLY, NO S/S OF ACUTE DISTRESS. RESPIRATIONS REGULAR AND UNLABORED.
--- NOTE | 2016-08-27 08:00 | NUR ---
SHIFT ASSMT COMPLETED.CO NAUSEA.REFUSES MEDICATIONS;STATES HE IS NOT TAKING ANY MEDICATIONS.CL IN REACH.
[2016-08-27 09:10] VITALS: BP 137/89
--- NOTE | 2016-08-27 12:00 | NUR ---
SITTING UP IN BED EATING LUNCH.
--- NOTE | 2016-08-27 15:09 | NUR ---
CARE TEAM MEETING: SPOKE WITH MR. ALLEN AND HE WOULD LIKE REFERRAL FAXED TO [facility].WILL CONTINUE TO FOLLOW WITH PATIENT
--- NOTE | 2016-08-27 19:32 | NUR ---
PT IS RESTING QUIETLY IN BED WITH EYES CLOSED. AWOKE EASILY TO VERBAL STIMULI. DENIES ANY PAIN OR DISCOMFORT AT THIS TIME. UMM ARE INTACT TO PTS NECK. C-COLLAR IS ON AND INTACT. SR'S ARE UP X 2 IN BED. CALL LIGHT AND BEDSIDE TABLE ARE WITHIN EASY REACH.
--- NOTE | 2016-08-27 22:09 | NUR ---
PT IS RESTING IN BED WATCHING TV. NO NEEDS VOICED.
[2016-08-27 22:50] VITALS: BP 143/84
--- NOTE | 2016-08-27 23:11 | NUR ---
PT. IN BED WITH HOB UP FOR COMFORT. EYES CLOSED AND RESP. EVEN. CALL LIGHT WITHIN REACH.
--- NOTE | 2016-08-27 23:26 | NUR ---
RESTING IN BED WITH EYES CLOSED.
--- NOTE | 2016-08-28 02:08 | NUR ---
RESTING IN BED WITH EYES CLOSED.
--- NOTE | 2016-08-28 05:58 | NUR ---
PT RESTING IN BED WITH EYES CLOSED. AWOKE EASILY TO VERBAL STIMULI. TOLERATED AM MEDS WITHOUT DIFFICULTY. REFUSED TO GET UP FOR SHOWER AT THIS TIME.
--- NOTE | 2016-08-28 08:00 | NUR ---
SHIFT ASSMT COMPLETED.DENIES NEEDS.BREAKFAST GIVEN.NO BM THIS MORNING FROM [facility].
[2016-08-28 09:05] VITALS: BP 133/87
--- NOTE | 2016-08-28 12:00 | NUR ---
IN BED SITTING UP EATING LUNCH.CL IN REACH.
--- NOTE | 2016-08-28 20:04 | NUR ---
PT RECEIVED IN BED WITH EYES OPEN WATCHING TV. NO CONCERNS MADE KNOWN. CALL LIGHT IN REACH.
[2016-08-28 20:15] VITALS: BP 115/86
--- NOTE | 2016-08-29 01:20 | NUR ---
PT IN BED WITH EYES CLOSED AND CHEST RISING. NO CONCERNS NOTED. CALL LIGHT IN REACH.
--- NOTE | 2016-08-29 06:40 | NUR ---
PT IN BED WITH EYES CLOSED AND CHEST RISING. NO SIGN/SYMPTOMS OF DISTRESS NOTED. CALL LIGHT IN REACH.
--- NOTE | 2016-08-29 07:31 | NUR ---
LAYING ON SIDE IN BED, EYES CLOSED. NO S/S DISTRESS. CALL LIGHT IN REACH
[2016-08-29 08:22] VITALS: BP 114/69
--- NOTE | 2016-08-29 11:50 | NUR ---
RESTING IN BED IN ROOM.
--- NOTE | 2016-08-29 13:05 | NUR ---
LAYING IN BED EATING LUNCH. STILL HAS SOFT C-COLLAR IN PLACE WITH HE WEARS ALL THE TIME. INCISION HAS NO S/S INFECTION.
[2016-08-29 19:00] VITALS: BP 152/80
--- NOTE | 2016-08-29 19:23 | NUR ---
PT RECEIVED IN BED WITH EYES CLOSED AND CHEST RISING. EASILY AROUSED TO VERBAL STIMULI. NO CONCERNS MADE KNOWN AT THIS TIME. CALL LIGHT IN REACH.
--- NOTE | 2016-08-30 00:33 | NUR ---
PT IN BED WITH EYES CLOSED AND CHEST RISING. NO CONCERNS NOTED. CALL LIGHT IN REACH
--- NOTE | 2016-08-30 05:47 | NUR ---
PT IN BED WITH EYES CLOSED AND CHEST RISING. EASILY AROUSED TO VERBAL STIMULI. NO CONCERNS NOTED AT THIS TIME. CALL LIGHT IN REACH.
--- NOTE | 2016-08-30 07:04 | NUR ---
RESTING QUIETLY IN BED. EYES CLOSED. CALL LIGHT IN REACH
[2016-08-30 07:40] VITALS: BP 136/91
--- NOTE | 2016-08-30 07:45 | NUR ---
PT LYING IN BED LEFT SIDE EYES CLOSED RESTING QUIETLY. ALERT AND ORIENTED X4 DENIES ANY PAIN
--- NOTE | 2016-08-30 09:45 | NUR ---
PT LYING IN BED RIGHT SIDE EYES CLOSED RESTING QUIETLY
--- NOTE | 2016-08-30 11:46 | NUR ---
PT SITTING UP IN BED WATCHING TV QUIETLY
--- NOTE | 2016-08-30 13:44 | NUR ---
PT IN THERAPY
--- NOTE | 2016-08-30 15:50 | NUR ---
PT IN THERAPY
--- NOTE | 2016-08-30 17:31 | NUR ---
PT SITTING UP IN BED WATCHING TV. NO CONCERNS VOICED AT THIS TIME
--- NOTE | 2016-08-30 19:15 | NUR ---
PT IN BED WITH HOB UP FOR COMFORT. WATCHING TV. ALERT & ORIENTED. SOFT COLLAR. NO O2. NO IV. BED WAIVER. BED IN LOWEST POSITION AND CALL LIGHT WITHIN REACH.
[2016-08-30 20:16] VITALS: BP 144/83
--- NOTE | 2016-08-30 23:15 | NUR ---
PT IN BED WITH HOB UP FOR COMFORT. WATCHING TV. BED IN LOWEST POSITION AND CALL LIGHT WITHIN REACH.
--- NOTE | 2016-08-31 03:15 | NUR ---
PT LYING IN BED. EYES CLOSED. CHEST RISING AND FALLING. BED IN LOWEST POSITION AND CALL LIGHT WITHIN REACH.
--- NOTE | 2016-08-31 03:55 | NUR ---
PATIENT RESTING IN BED, EYES CLOSED.
--- NOTE | 2016-08-31 05:48 | NUR ---
PT LYING IN BED. EYES CLOSED. RESPIRATIONS EVEN AND UNLABORED. BED IN LOWEST POSITION AND CALL LIGHT WITHIN REACH.
[2016-08-31 08:00] VITALS: BP 117/73
--- NOTE | 2016-08-31 08:00 | NUR ---
SITTING UP IN BED,BREAKFAST GIVEN.CL IN REACH.
--- NOTE | 2016-08-31 09:39 | NUR ---
PT STATES I BETTER GET HIS DISCHARGE READY TODAY THAT HE WAS TOLD HE WAS LEAVING TODAY BY [facility].I EXPLAINED TO HIM THAT [facility] WAS OUT TODAY AND PLANS IS FOR HIM TO GO TO [place] BY THE [facility] 09/03,STATED THAT HE WAS LEAVING TODAY.HE REFUSED ALL MEDICINE AFTER EACH ONE WAS EXPLAINED AND OPENED.MEDS THROWN AWAY.NO DISCHARGE PLANS HAS CHANGED FOR THIS PATIENT.PLANNED DC IS 09/03/16.
--- NOTE | 2016-08-31 10:29 | NUR ---
SPOKE WITH SUPERVISIOR AT REQUEST.EXPLAINED THAT NO DISCHARGE IS EXPECTED TODAY BUT UNABLE TO REASON.REFUSED THERAPY.
--- NOTE | 2016-08-31 16:01 | NUR ---
CAME TO NURSING DESK W/O C-COLLAR ON DEMANDING THAT HE WAS GOING TO LEAVE THAT HE WAS LIED TO AND THAT HE WANTED TO SIGN AMA.WHILE LOOKING FOR FORM PT WENT THROUGH DOUBLE DOORS TO OUTSIDE.CARLYLE SEGUNDO WENT TO TALK TO HIM.HE DID AGREE TO COME BACK TO REHAB UNIT AND SON TO CALL HIM.
--- NOTE | 2016-08-31 19:45 | NUR ---
AZAR JARQUIN, INFORMED ME THAT PT. NOT IN HIS ROOM AND SHE HASN'T SEEN HIM. LOOKED IN THERAPY ROOM AND PT. NOT THERE. ONCOLOGY REP, LENORE, SAID HE SAW HIM LEAVE ABOUT 5 MIN. EARLIER GOING OUT ONTO THE BACK DECK. INFORMED LENORE THAT PT. IS NOT BACK THERE. INFORMED CHARGE NURSE, EDMUND OCONNRO ABOUT PT. NOT BEING ON THE UNIT. CONTACT RADIOGRAPHER TECHNOLOGIST, EDMUND LEAHY OF SITUATION. HE CALLED EMERGENCY MANAGER AND INFORMED OF SITUATION. I CALLED PT'S SON AND INFORMED SON THAT WE WERE UNABLE TO LOCATE HIS FATHER. SON SAID THAT PT. IS WITH HIM OUT IN THE BACK PARKING LOT. REQUESTED PT. RETURN TO UNIT FOR SHIFT ASSESSMENT. SON APOLOGIZED AND SAID HE ASSUMED EVERYONE KNEW WHERE HIS FATHER WAS. SON SAID FATHER WILL BE BACK IN [place]. RADIOGRAPHER TECHNOLOGIST MADE AWARE OF PT'S LOCATION. RADIOGRAPHER TECHNOLOGIST INFORMED SECURITY SO THAT PT. COULD BE ESCORTED BACK INTO BUILDING. ONCE BACK INSIDE PT. APOLOGIZED AND SAID HE WAS UNDER THE ASSUMPTION THAT EVERYONE KNEW WHAT HE WAS GOING TO BE DOING. PT. HAD A STRONG ODOR OF CIGARETTE SMOKE ABOUT HIS PERSON.
--- NOTE | 2016-08-31 23:22 | NUR ---
PT. IN BED WITH HOB UP FOR COMFORT LYING ON HIS RIGHT SIDE. EYES CLOSED AND RESP. DEEP AND EVEN. SOFT COLLAR REMAINS ON. CALL LIGHT WITHIN REACH.
--- NOTE | 2016-09-01 03:09 | NUR ---
PT. IN BED WITH HOB UP FOR COMFORT. EYES CLOSED AND RESP. DEEP AND EVEN. SOFT CERVICAL COLLAR IN PLACE. CALL LIGHT WITHIN REACH.
[2016-09-01 08:00] VITALS: BP 129/78
--- NOTE | 2016-09-01 08:00 | NUR ---
SHIFT ASSMT COMPLETED.HAS C-COLLAR ON.DENIES NEEDS.CL IN REACH.
--- NOTE | 2016-09-01 08:00 | NUR ---
AWAKE,BREAKFAST GIVEN.COMPLIANT WITH SOFT COLLAR.INCISION TO NECK WITH UMM IN PLACE.PLANNING A DAY PASS TODAY WITH FAMILY/ADVOCATE.
--- NOTE | 2016-09-01 12:00 | NUR ---
EATING LUNCH.DENIES NEEDS.
--- NOTE | 2016-09-01 16:00 | NUR ---
LYING IN BED QUIET,DENIES NEEDS
--- NOTE | 2016-09-01 19:40 | NUR ---
PT IN BED WITH HOB UP FOR COMFORT. WATCHING TV. SOFT COLLAR. NO IV. NO O2. BED ALARM WAIVER. BED IN LOWEST POSITION AND CALL LIGHT WITHIN REACH.
[2016-09-01 20:28] VITALS: BP 140/87
--- NOTE | 2016-09-01 23:40 | NUR ---
PT IN BED WITH HOB UP FOR COMFORT. WATCHING TV. BED IN LOWEST POSITION AND CALL LIGHT WITHIN REACH.
--- NOTE | 2016-09-02 03:19 | NUR ---
PT RESTING QUIETLY, NO S/S OF ACUTE DISTRESS. RESPIRATIONS REGULAR AND UNLABORED.
--- NOTE | 2016-09-02 03:40 | NUR ---
PT IN BED WITH HOB UP FOR COMFORT. EYES CLOSED. CHEST RISING AND FALLING. BED IN LOWEST POSITION AND CALL LIGHT WITHIN REACH.
--- NOTE | 2016-09-02 07:13 | NUR ---
RESTING QUIETLY IN BED CALL LIGHT IN REACH
--- NOTE | 2016-09-02 08:34 | NUR ---
UPSET STATING HE WAS SUPPOSED TO D/C OVER THE WEEKEND AND DID NOT HAVE PAPERWORK TO GO. STATES HE IS PLANNING TO [facility] FOR "WHAT EVERY MY FURNACE RELINER CAN THINK OF". STATES "IF I DONT SEE DOCTOR AND GET PAPERWORK, I'M LEAVING IN AN HOUR". HE REFUSED SOME OF HIS AM MEDS STATING "I JUST WANT THE HYDRO AND VALIUM".
[2016-09-02] MEDS ORDERED: HYDROCODON-ACE1 EAC7 PO (08:57)
--- NOTE | 2016-09-02 11:03 | NUR ---
PATIENT DISCHARGING WITH FRIENDS. PATIENT DECLINES ANY DME NEEDS, SAYS HE WILL BY A CANE AT [facility]. PATIENT HAS DECLINED HOME HEALTH. PATIENT CHOICE FORM FOR HOME HEALTH AND [facility] FORM SIGNED, EXPLIANED AND FILED IN CHART. DR. AHUJA 09/11/16 @ 2:15, DR. INGRAM 09/20/16 @ 8:45, DR. ALCIEA 09/13/16 @ 10:00.
--- NOTE | 2016-09-02 12:15 | NUR ---
D/C WITH ALL PERSONAL BELONGINGS. WENT OVER D/C INSTRUCTIONS, F/U APPTS WITH PT. HE DECLINED TO HAVE ANY MEDS CALLED IN WHEN ASKED WHICH PHARMACY HE PREFERRED. HE NAMED A FEW DIFFERENT LOCATIONS BUT DID NOT KNOW NAME OF PHARMACY THEN DECLINED NEEDING ANY MEDS CALLED IN. NURSE GAVE HIM HIS SCRIPT FOR PAIN MEDICATION. PT AWARE OF UPCOMING FOLLOWUP APPTS. HE UNDERSTANDS HE IS TO WEAR SOFT CERVICAL COLLAR AT ALL TIMES. LEFT FLOOR IN W/C WITH STAFF.
[2016-09-02 14:51] VITALS: BP 135/88
== END 2016-09-02 12:00 | disposition home or self-care (01) | DRG 560 ==
LOC: D.REHAB 18:37
PROVIDERS: ADMIT Emergency Medicine
DX: S12.110D Anterior displaced Type II dens fracture, subsequent encounter for fracture with routine healing (principal); N17.9 Acute kidney failure, unspecified; V19.9XXD Pedal cyclist (driver) (passenger) injured in unspecified traffic accident, subsequent encounter; R13.12 Dysphagia, oropharyngeal phase; I10 Essential (primary) hypertension; R55 Syncope and collapse; M62.830 Muscle spasm of back; R91.8 Other nonspecific abnormal finding of lung field; F17.200 Nicotine dependence, unspecified, uncomplicated

== ENCOUNTER 2016-09-10 13:01 | Emergency (ER) | payer MEDICARE ==
[2016-08-21 14:30] VITALS: BMI 22.8
== END 2016-09-10 15:43 | disposition home or self-care (01) ==
LOC: D.ER 13:01
DX: Z76.0 Encounter for issue of repeat prescription (principal); I10 Essential (primary) hypertension

== ENCOUNTER → 2016-09-19 09:42 | Outpatient (CLI) | payer MEDICARE ==
[2016-08-21 14:30] VITALS: BMI 22.8
== END | disposition home or self-care (01) ==
LOC: D.NM 09:42
DX: Z48.811 Encounter for surgical aftercare following surgery on the nervous system (principal)

== ENCOUNTER → 2016-10-28 15:01 | Outpatient (CLI) | payer MEDICARE ==
[2016-08-21 14:30] VITALS: BMI 22.8
== END | disposition home or self-care (01) ==
LOC: D.CT 14:00
DX: C34.10 Malignant neoplasm of upper lobe, unspecified bronchus or lung (principal)

== ENCOUNTER → 2016-10-30 10:09 | Outpatient (CLI) | payer MEDICARE ==
[2016-08-21 14:30] VITALS: BMI 22.8
== END | disposition home or self-care (01) ==
LOC: D.MRI 10:00
DX: C7A.090 Malignant carcinoid tumor of the bronchus and lung (principal)

== ENCOUNTER 2017-02-05 09:49 | Emergency (ER) | payer MEDICARE ==
[2016-08-21 14:30] VITALS: BMI 22.8
[2017-02-05 11:20] LABS: ALBUMIN 3.7 g/dL (3.4-5.0); ANION GAP 14.3 mmol/L (8-16); BILIRUBIN - TOTAL 0.6 mg/dL (0.2-1.3); CALCIUM 9.4 mg/dL (8.5-10.1); CARBON DIOXIDE 25.6 mmol/L (21.0-32.0); CREATININE - SERUM 2.3 mg/dL (0.6-1.3); POTASSIUM - SERUM 3.9 mmol/L (3.5-5.1); PROTEIN - SERUM 8.3 g/dL (6.4-8.2)
[2017-02-05 11:38] LABS: MAGNESIUM - SERUM 2.1 mg/dL (1.8-2.4); TROPONIN-I 0.037 ng/mL (0.000-0.060)
[2017-02-05 11:40] LABS: UDS - AMPHET NEGATIVE QUAL (NEGATIVE); UDS - BARB NEGATIVE QUAL (NEGATIVE); UDS - BENZO NEGATIVE QUAL (NEGATIVE); UDS - COCAINE NEGATIVE QUAL (NEGATIVE); UDS - OPIATE NEGATIVE QUAL (NEGATIVE); UDS - PCP NEGATIVE QUAL (NEGATIVE); UDS - THC POSITIVE QUAL (NEGATIVE)
[2017-02-05 11:42] LABS: APPEARANCE CLEAR (CLEAR); BILIRUBIN NEGATIVE (NEGATIVE); COLOR YELLOW (YELLOW); GLUCOSE NEGATIVE (NEGATIVE); KETONE NEGATIVE (NEGATIVE); NITRITE NEGATIVE (NEGATIVE); PROTEIN 3+ mg/dL (NEGATIVE); SPECIFIC GRAVITY 1.015 (1.005-1.020); UROBILINOGEN NORMAL (NORMAL)
[2017-02-05 11:44] LABS: EPITHELIAL CELLS 0-5 /hpf (0-5); MUCUS <1+ /lpf (NONE SEEN)
[2017-02-05 11:47] LABS: BACTERIA FEW /hpf (NONE SEEN); GRANULAR CAST 0-5 /lpf (NONE SEEN); HYALINE CAST OCC /lpf (NONE SEEN)
[2017-02-05 12:10] LABS: BASOPHILS 0.6 % (0-2); EOSINOPHILS 1.5 % (0-7); HEMATOCRIT 42.9 % (42.0-54.0); HEMOGLOBIN 14.1 g/dL (13.5-17.5); IMMATURE GRANULOCYTES 0.4 % (0-5); LYMPHOCYTES 23.8 % (15-50); MCH 28.8 pg (26.0-34.0); MCHC 32.9 g/dL (31.0-37.0); MCV 87.6 fL (80.0-100.0); MEAN PLATELET VOLUME 8.7 fL (7.4-10.4); MONOCYTES 9.4 % (2-11); NEUTROPHILS 64.3 % (40-80); PLATELET COUNT 228 10x3/uL (130-400); RDW 13.9 % (11.5-14.5); WBC 7.3 10x3/uL (4.8-10.8)
== END 2017-02-05 16:30 | disposition home or self-care (01) ==
LOC: D.ER 09:49
PROVIDERS: Nurse Practitioner Family
DX: M25.511 Pain in right shoulder (principal); C34.90 Malignant neoplasm of unspecified part of unspecified bronchus or lung; I12.9 Hypertensive chronic kidney disease with stage 1 through stage 4 chronic kidney disease, or unspecified chronic kidney disease; N18.9 Chronic kidney disease, unspecified; Z91.19 Patient's noncompliance with other medical treatment and regimen; I44.4 Left anterior fascicular block

== ENCOUNTER 2017-03-02 09:55 | Emergency (ER) | payer MEDICARE ==
[2016-08-21 14:30] VITALS: BMI 22.8
== END 2017-03-02 11:20 | disposition left against medical advice (07) ==
LOC: D.ER 09:55
DX: M62.838 Other muscle spasm (principal); I12.9 Hypertensive chronic kidney disease with stage 1 through stage 4 chronic kidney disease, or unspecified chronic kidney disease; N18.9 Chronic kidney disease, unspecified; Z85.118 Personal history of other malignant neoplasm of bronchus and lung; F17.200 Nicotine dependence, unspecified, uncomplicated